=== PATIENT | male | born 1980 | race Caucasian/White ===

== ENCOUNTER 2019-01-10 15:42 | Emergency (ER) | payer OTHER ==
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
== END 2019-01-10 17:08 | disposition home or self-care (01) ==
LOC: MADERS 15:42
DX: S50.11XA Contusion of right forearm, initial encounter (principal); W37.8XXA Explosion and rupture of other pressurized tire, pipe or hose, initial encounter

== ENCOUNTER 2020-10-27 10:01 | Emergency (ER) | payer OTHER ==
[2020-10-27] MEDS ORDERED: Boostrix 0.5 ML (Tdap) VIAL ONE (10:27)
[2020-10-27] MEDS ORDERED: Lidocaine 1% w/Epinephrine 1:100K 20 ML VIAL ONE (10:27)
== END 2020-10-27 11:04 | disposition home or self-care (01) ==
LOC: MADERS 10:01
DX: S61.411A Laceration without foreign body of right hand, initial encounter (principal); Z23 Encounter for immunization; W26.8XXA Contact with other sharp object(s), not elsewhere classified, initial encounter; Y99.0 Civilian activity done for income or pay
CPT/HCPCS: 12001; 90471; 90715